=== PATIENT | female | born 1995 | race Caucasian/White ===

== ENCOUNTER 2019-08-26 22:55 | Emergency (ER) | payer BC ==
--- NOTE | 2019-08-26 23:03 | EDM.PDOC ---
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 According to the patient she saturated 3 pads this evening. Time she is not actively bleeding. Patient has not had any lightheadedness or dizziness. She is not had any fevers or chills. Patient has no other complaints at this time. ED ROS GENERAL - Review of Systems Review Of Systems: See Below Constitutional: Reports: No Symptoms HEENT: Reports: No Symptoms Respiratory: Reports: No Symptoms Cardiovascular: Reports: No Symptoms GI/Abdominal: Reports: No Symptoms ED EXAM, RENAL/ - Physical Exam Exam: See Below Exam Limited By: No Limitations General Appearance: Alert, No Apparent Distress Respiratory/Chest: No Respiratory Distress, Lungs Clear, Normal Breath Sounds Cardiovascular: Regular Rate, Rhythm, No Edema, No Murmur GI/Abdominal: Normal Bowel Sounds, Soft, Non-Tender (Female) Exam: Other (External vaginal exam shows 3 biopsy sites the largest on the right side and a second biopsy a couple centimeters below this it looks like she is formed a hematoma between these 2 sites. It is minimally tender with palpation and not actively bleeding. On the left upper mons she also has a biopsy site that is not actively bleeding and looks to have no hematoma associated with it. Internal vaginal exam is deferred at this point) Course - Vital Signs Last Recorded V/S: Last Vital Signs Temp 36.9 C 08/26/19 22:59 Pulse 96 08/26/19 22:59 Resp 16 08/26/19 22:59 BP 119/82 08/26/19 22:59 Pulse Ox 96 08/26/19 22:59 - Re-Assessments/Exams Free Text/Narrative Re-Assessment/Exam: 08/26/19 23:[address] Marrero, who is on-call for Dr. Buitrago. Patient will follow up with Dr. Buitrago in the morning. I have recommended to the patient that if she starts bleeding again isolate lesions bleeding hold some direct pressure over it for 10 minutes that should stop the bleeding. Patient verbalizes understanding of the treatment plan including following up in the women's clinic tomorrow. Departure - Departure Time of Disposition: 23:39 Disposition: Home, Self-Care 01 Clinical Impression: Encounter for postoperative wound check - Discharge Information Forms: ED Department Discharge Additional Instructions: Return to the emergency room with any questions problems or worsening symptoms Follow-up with Dr. Buitrago tomorrow. Call the clinic first thing in the morning. Get plenty of rest no heavy lifting. If the bleeding resumes apply direct pressure for 10 minutes to the biopsy site that is bleeding. Sepsis Event Note (ED) - Focused Exam Vital Signs: Vital Signs Temp Pulse Resp BP Pulse Ox 08/26/19 22:59 36.9 C 96 16 119/82 96
== END 2019-08-26 23:48 | disposition home or self-care (01) ==
LOC: JD.ED 22:55
DX: Z48.816 Encounter for surgical aftercare following surgery on the genitourinary system (principal)
CPT/HCPCS: 99283